=== PATIENT | female | born 1945 | race African-American/Black ===

== ENCOUNTER → 2018-01-21 | Outpatient (CLI) | payer MEDICARE ==
[~2018-01-21] MED LIST: ALBU05 IH; ALLO100T PO; ASCO500C6 PO; BARIUM SULFATE 450ML ORAL SUSP ONE; COLC0.6C3 PO; COR6 PO; FERR325T6 PO; FOLI-43 PO; GUAI600T88 PO; INDO50CA15 PO; LINA5TAB PO; METF-414 PO; TRIA1TAB92 PO; UMEC62.5 IH
== END | disposition home or self-care (01) ==
LOC: CT 11:12
PROVIDERS: ATTEND Surgery
DX: K43.9 Ventral hernia without obstruction or gangrene (principal); K57.30 Diverticulosis of large intestine without perforation or abscess without bleeding
CPT/HCPCS: 74176

== ENCOUNTER 2018-05-29 07:01 | Day surgery (SDC) | payer MEDICARE ==
[~2018-05-29] VITALS: Ht 167.6 cm; Wt 108.9 kg
[2018-05-29] MEDS ORDERED: SKIN ADHESIVE 0.7 GM EA TOP ONE (07:08)
[2018-05-29] MEDS ORDERED: BUPIVACAINE HCL 0.5% (5MG/ML) 50ML ONE (07:08)
[2018-05-29] MEDS ORDERED: INDOCYANINE GREEN 25 MG VIAL IV ONE (07:11)
[2018-05-29] MEDS ORDERED: GUAI600T88 PO (07:19)
[2018-05-29] MEDS ORDERED: FERR325T6 PO (07:19)
[2018-05-29] MEDS ORDERED: ALBU05 IH (07:19)
[2018-05-29] MEDS ORDERED: ASCO500C6 PO (07:19)
[2018-05-29] MEDS ORDERED: ALLO100T PO (07:19)
[2018-05-29] MEDS ORDERED: COR6 PO (07:19)
[2018-05-29] MEDS ORDERED: METF-414 PO (07:19)
[2018-05-29] MEDS ORDERED: TRIA1TAB92 PO (07:19)
[2018-05-29 07:54] LABS: CLARITY URINE CLOUDY (CLEAR); COLOR URINE YELLOW (YELLOW); KETONES URINE TRACE (NEGATIVE); LEUKOCYTE ESTERASE URINE 2+ (NEGATIVE); NITRITE URINE NEGATIVE (NEGATIVE); OCCULT BLOOD URINE NEGATIVE (NEGATIVE); PROTEIN URINE NEGATIVE (NEGATIVE); SPECIFIC GRAVITY URINE 1.023 (1.005-1.030); UROBILINOGEN URINE 0.2 E.U./dL (0.2-1.0)
[2018-05-29] MEDS ORDERED: INDO50CA15 PO (08:43)
[2018-05-29] MEDS ORDERED: COLC0.6C3 PO (08:43)
[2018-05-29] MEDS ORDERED: FOLI-43 PO (08:43)
[2018-05-29] MEDS ORDERED: UMEC62.5 IH (08:43)
[2018-05-29] MEDS ORDERED: LINA5TAB PO (08:43)
[2018-05-29] MEDS ORDERED: SUCCINYLCHOLINE CHLORIDE 200MG/10ML IV ONE (09:28)
[2018-05-29] MEDS ORDERED: ONDANSETRON HCL 4MG/2ML INJ ONE ×2 (09:28→12:25)
[2018-05-29] MEDS ORDERED: PHENYLEPHRINE HCL 10 MG/ML 1ML (IV VIAL) IV ONE (09:28)
[2018-05-29] MEDS ORDERED: LIDOCAINE HCL/PF 1% 10 MG/ML 5ML VIAL ONE (09:28)
[2018-05-29] MEDS ORDERED: PROPOFOL 200MG/20ML VIAL IV ONE (09:28)
[2018-05-29] MEDS ORDERED: EPHEDRINE SULFATE 50MG/ML VIAL ONE (09:28)
[2018-05-29] MEDS ORDERED: FENTANYL CITRATE/PF 50MCG/ML 2ML VIAL ONE ×3 (09:28→10:19)
[2018-05-29] MEDS ORDERED: DEXAMETHASONE 4MG/ML 1ML VIAL ONE (09:28)
[2018-05-29] MEDS ORDERED: GLYCOPYRROLATE 0.2 MG/ML 2ML VIAL ONE (09:28)
[2018-05-29] MEDS ORDERED: MIDAZOLAM HCL 2 MG/2 ML VIAL ONE (09:28)
[2018-05-29] MEDS ORDERED: CEFAZOLIN SODIUM 1000MG/VIAL ONE (09:28)
[2018-05-29] MEDS ORDERED: METOCLOPRAMIDE HCL 10MG/2ML VIAL ONE ×2 (09:28→12:25)
[2018-05-29] MEDS ORDERED: NEOSTIGMINE METHYLSULFATE 1MG/ML 10 ML VIAL ONE (09:28)
[2018-05-29] MEDS ORDERED: SODIUM CHLORIDE 0.9% 10ML VIAL ONE (09:28)
[2018-05-29] MEDS ORDERED: ROCURONIUM BROMIDE 10MG/ML VIAL 5ML IV ONE ×2 (09:28→10:21)
[2018-05-29] MEDS ORDERED: KETOROLAC 30MG/ML VIAL ONE (12:18)
[2018-05-29] MEDS ORDERED: FUROSEMIDE 20MG/2ML VIAL IVP SCH (12:44)
[2018-05-29] MEDS ORDERED: MORPHINE SULFATE 4 MG/ML CPJ (NOT FOR IM USE) IV PRN (12:45)
[2018-05-29] MEDS ORDERED: MEPERIDINE HCL/PF 25MG/ML CPJ IV PRN (12:45)
[2018-05-29] MEDS ORDERED: FENTANYL CITRATE/PF 50MCG/ML 2ML VIAL IV PRN (12:45)
[2018-05-29] MEDS ORDERED: ONDANSETRON HCL 4MG/2ML INJ IV PRN (12:45)
[2018-05-29] MEDS ORDERED: HYDROMORPHONE HCL/PF 2MG/ML CPJ IV PRN (12:45)
[2018-05-29] MEDS ORDERED: ALBUTEROL (0.083%) 2.5MG/3ML NEB HHN SCH (13:00)
[2018-05-29] MEDS ORDERED: HYDROCODONE/ACETAMINOPHEN 5/325MG TABLET PO PRN (15:00)
== END 2018-05-29 17:30 | disposition home or self-care (01) ==
LOC: OR 07:01
PROVIDERS: ATTEND Surgery
DX: K43.2 Incisional hernia without obstruction or gangrene (principal); J44.9 Chronic obstructive pulmonary disease, unspecified; M19.90 Unspecified osteoarthritis, unspecified site; Z87.891 Personal history of nicotine dependence; Z96.653 Presence of artificial knee joint, bilateral; Z98.42 Cataract extraction status, left eye; Z98.41 Cataract extraction status, right eye; I12.9 Hypertensive chronic kidney disease with stage 1 through stage 4 chronic kidney disease, or unspecified chronic kidney disease; E11.22 Type 2 diabetes mellitus with diabetic chronic kidney disease; N18.9 Chronic kidney disease, unspecified
CPT/HCPCS: 49652; 81003; 82962; 87077; 87086; 87186; C1781; G0168; J0330; J0690; J1100; J1885; J1940; J2250; J2370; J2405; J2704; J2710; J2765; J3010; J3490; J7611; Q9957